=== PATIENT | female | born 1980 | race Caucasian/White ===

== ENCOUNTER 2019-10-16 13:16 | Emergency (ER) | payer OTHER, SELFPAY ==
[2019-10-16 13:36] VITALS: BP 138/66; PULSE 92; RESP 16; TEMP 36.7; O2SAT 98
--- NOTE | 2019-10-16 13:48 | ED.WOUNDLAC ---
HPI - Wound/Laceration General Chief Complaint: Wound/Laceration Stated Complaint: Laceration/Lip Time Seen by Provider: 10/16/19 13:49 Source: patient Mode of arrival: ambulatory Limitations: no limitations History of Present Illness HPI narrative: Alix Griffith is a 38 yo female with no prior medical history who fell last night and has an abrasion across her chin and lips, with a loose right front tooth(tooth #9) Related Data Allergies Allergy/AdvReac Type Severity Reaction Status Date / Time No Known Allergies Allergy Verified 10/16/19 14:08 Review of Systems Review of Systems: Narrative: CONSTITUTIONAL: Denies fever, chills, sweats. EYES: Denies visual changes, redness, discharge. ENT: Denies rhinorrhea, congestion, sore throat, otalgia. CARDIOVASCULAR: Denies chest pain, palpitations, edema. RESPIRATORY: Denies dyspnea, wheezing, cough GASTROINTESTINAL: Denies abdominal pain, nausea, vomiting, diarrhea. GENITOURINARY: Denies dysuria, hematuria, abnormal discharge SKIN: Denies rash or itching. Facial abrasion from chin and across both lips, loose tooth. Angled in NEUROLOGIC: Denies numbness, or focal weakness. PSYCHIATRIC: Denies anxiety or depression. [facility] Family History Family History Other No active medical problems Social History Social History (Updated 10/16/19 @ 14:02 by Sylvia Olivera CNP) Smoking status: Former smoker Alcohol intake: current Comments At time of signature, I agree with nursing past medical, surgical, social and family history. There is no relevant family history pertinent to the presenting complaint. Exam Narrative: Exam Narrative: GENERAL: This is a well-nourished, well-developed patient, in mild distress. HEAD: normocephalic, atraumatic. EYES: Sclera clear/white. Vision is grossly intact. EARS: External ears normal, Hearing grossly intact. NOSE: External nose abrasion with no obvious nasal discharge, nares without redness, no rhinorrhea. THROAT: Mucous membranes moist, chin and lips are abrased, small lack to lower lip, partially healing, well approximated, no violation of vermilion border, no TMJ tenderness, loose tooth #9 NECK: Neck supple, non-tender . CARDIOVASCULAR: Regular rate and rhythm without murmurs, gallops, or rubs. RESPIRATORY: Clear to auscultation. Breath sounds equal bilaterally. No wheezes, rales, or rhonchi. GASTROINTESTINAL: Abdomen soft, SKIN: warm, intact with no suspicious lesions or rash, good texture and turgor. Abrasion of chin NEURO: awake, alert, and oriented to person, place and time. There were no obvious focal neurologic abnormalities. Steady gait EXTREMITIES: Normal range of motion. No edema. No calf tenderness. BACK: Nontender without deformity or crepitance.. Course Course Emergency Course: Wound cleaned and Neosporin applied Going to dentist this afternoon for 4:20 Vital Signs Vital signs: Vital Signs Temperature 98.1 F 10/16/19 13:36 Pulse Rate 92 10/16/19 13:36 Respiratory Rate 16 10/16/19 13:36 Blood Pressure 138/66 10/16/19 13:36 Pulse Oximetry 98 10/16/19 13:36 Temperature 98.1 F 10/16/19 13:36 Pulse Rate 92 10/16/19 13:36 Respiratory Rate 16 10/16/19 13:36 Blood Pressure 138/66 10/16/19 13:36 Pulse Oximetry 98 10/16/19 13:36 MDM - Wound/Laceration Differential Diagnosis Differential diagnosis: Likely laceration and other (Abrasion of lips, chin ) Discharge Plan Discharge Clinical Impression: Abrasion, Laceration Patient Disposition: Home, Self-Care Condition: Stable Instructions: Abrasion (ED) Follow-up/Referrals: UNKNOWN,DOCTOR [Primary Care Provider] - Stand Alone Forms: Work/School Release IP Time of Disposition: 14:08 Discharge Date/Time: 10/16/19 14:11
== END 2019-10-16 14:11 | disposition home or self-care (01) ==
PROVIDERS: Emergency Provider Nurse Practitioner
DX: S00.81XA Abrasion of other part of head, initial encounter (principal); W19.XXXA Unspecified fall, initial encounter; S01.511A Laceration without foreign body of lip, initial encounter; Z87.891 Personal history of nicotine dependence
CPT/HCPCS: 99202; G0463